=== PATIENT | male | born 1985 | race Caucasian/White ===

== ENCOUNTER 2022-03-29 18:27 | Emergency (ER) | payer OTHER ==
[~2022-03-29] VITALS: Ht 182.9 cm; Wt 91.1 kg
[2022-03-29 18:48] VITALS: BP 132/82
[2022-03-29] MEDS ORDERED: ONDANSETRON ODT 4 MG TAB PO ONE (19:00)
[2022-03-29] MEDS ORDERED: HYDROcodone-ACET 10/325MG TAB PO ONE (20:15)
[2022-03-29] MEDS ORDERED: HYDR-4902 PO (21:13)
== END 2022-03-29 21:56 | disposition home or self-care (01) ==
LOC: ER 18:27
DX: S01.01XA Laceration without foreign body of scalp, initial encounter (principal); S09.90XA Unspecified injury of head, initial encounter; W22.8XXA Striking against or struck by other objects, initial encounter; Y93.89 Activity, other specified; Y92.89 Other specified places as the place of occurrence of the external cause; Y99.8 Other external cause status
CPT/HCPCS: 70450; 72125; 99284; Q0162